=== PATIENT | male | born 1980 | race Hispanic/Latino ===

== ENCOUNTER → 2024-06-11 14:59 | Outpatient (REF) | payer OTHER, SELFPAY ==
[2024-06-11 16:09] LABS: ALT (SGPT) 50 U/L (0-50); AST (SGOT) 34 U/L (17-59); Albumin 4.6 g/dl (3.5-5.0); Alkaline Phosphatase 60 U/L (38-126); Direct Bilirubin 0.2 mg/dl (0.0-0.4); Total Bilirubin 0.8 mg/dl (0.2-1.3); Total Protein 7.4 g/dl (6.3-8.2)
[2024-06-11 18:36] LABS: Hepatitis C Antibody Reactive (Negative)
[2024-06-12 15:08] LABS: HIV Combo Negative (Negative)
== END ==
LOC: OHS 14:59
PROVIDERS: ATTENDING PHYSICIAN Nurse Practitioner
DX: Z23 Encounter for immunization (principal)
CPT/HCPCS: 36415; 80076; 86803; 87389; 87522